=== PATIENT | female | born 1985 | race Caucasian/White ===

== ENCOUNTER 2020-01-25 13:00 | Emergency (ER) | payer OTHER ==
[~2020-01-25] VITALS: Ht 157.5 cm; Wt 71.7 kg
[2020-01-25 13:11] VITALS: Ht 157.5 cm; Wt 71.7 kg
[2020-01-25 13:41] VITALS: BP 116/65
== END 2020-01-25 13:51 | disposition home or self-care (01) ==
LOC: ED 13:00
DX: F41.9 Anxiety disorder, unspecified (principal); F45.8 Other somatoform disorders

== ENCOUNTER 2020-05-09 15:21 | Emergency (ER) | payer OTHER ==
[~2020-05-09] VITALS: Ht 157.5 cm; Wt 73.0 kg
[2020-05-09 15:41] VITALS: Ht 157.5 cm; Wt 73.0 kg
[2020-05-09 16:32] LABS: AMPHETAMINE QUAL UR NONE DETECTED (See below)
[2020-05-09 16:32] LABS: BASOPHIL % 0.3 % (0-2); PLATELET COUNT 287 x10^3mcL (130-400)
[2020-05-09 16:45] LABS: RED CELL DISTRIBUTION WIDTH 15.2 % (11.5-14.5)
[2020-05-09 17:38] LABS: CARBON DIOXIDE 28.9 mmol/L (21-32); CHLORIDE SERUM 105 mmol/L (98-107); CREATININE SERUM 0.6 mg/dL (0.6-1.0); GFR1 > 60 mL/min; GLUCOSE SERUM 110 mg/dL (74-106); POTASSIUM SERUM 4.4 mmol/L (3.5-5.1); SODIUM SERUM 138 mmol/L (136-145)
[2020-05-09 17:43] LABS: ALBUMIN 3.7 g/dL (3.4-5.0); ALKALINE PHOSPHATASE 79 U/L (46-116); ALT/SGPT 53 U/L (14-59); AST/SGOT 29 U/L (15-37); BILIRUBIN TOTAL 0.18 mg/dL (0.20-1.00); TOTAL PROTEIN, SERUM 7.3 g/dL (6.4-8.2)
[2020-05-09 17:47] VITALS: BP 113/63
== END 2020-05-09 17:47 | disposition home or self-care (01) ==
LOC: ED 15:21
PROVIDERS: Emergency Medicine
DX: R55 Syncope and collapse (principal); M79.10 Myalgia, unspecified site

== ENCOUNTER 2020-05-12 16:37 | Emergency (ER) | payer OTHER ==
[~2020-05-12] VITALS: Ht 157.5 cm; Wt 72.1 kg
[2020-05-12 16:47] VITALS: BP 117/34; Ht 157.5 cm; Wt 72.1 kg
== END 2020-05-12 17:07 | disposition home or self-care (01) ==
LOC: ED 16:37
DX: Z02.79 Encounter for issue of other medical certificate (principal)